=== PATIENT | female | born 1965 | race Two or more races ===

== ENCOUNTER → 2024-06-29 | Outpatient (CLI) | payer MEDICAID, SELFPAY ==
--- NOTE | 2024-06-29 11:15 | XR_ITS ---
Examination: Screening digital mammography, bilateral Computer aided detection 3-D breast Tomosynthesis, bilateral Date and time of exam: June 29, 2024 1109 hours Compared to mammograms dating to March 08, 2022 Indication: Screening Technique: Nonmagnified MLO, CC views of the breasts to been obtained, reconstructed from 3-D Tomosynthesis images. R2 computer aided detection program utilized for evaluation of suspicious masses and/or abnormal calcifications. 3-D Tomosynthesis images obtained. Findings: Scattered areas of fibroglandular density Again noted 7 mm nodule slightly inner left breast CC view posterior depth as well assess 7 mm nodule lower left breast MLO view 6 mm nodule upper left breast MLO view Impression: BI-RADS Category 0: Incomplete: Need additional imaging evaluation Recommend left breast sonography follow-up to further characterize nodules left breast
== END | disposition home or self-care (01) ==
LOC: CDIM 10:58
PROVIDERS: Referring Provider Nurse Practitioner Family; Visit Provider Nurse Practitioner Family
DX: Z12.31 Encounter for screening mammogram for malignant neoplasm of breast (principal); R92.8 Other abnormal and inconclusive findings on diagnostic imaging of breast
CPT/HCPCS: 77063; 77067

== ENCOUNTER → 2024-07-30 | Outpatient (CLI) | payer MEDICAID, SELFPAY ==
--- NOTE | 2024-07-30 09:17 | XR_ITS ---
Examination: Breast ultrasound, unilateral, left complete Date and time of exam: July 30, 2024 0933 hrs. Indications: Sharp left breast pain beginning 2 months ago, mammogram June 29, 2024 7 mm nodule inner left breast 7 mm nodule lower left breast 6 mm nodule upper left breast Technique: Real-time king scale ultrasonographic imaging performed left breast including all 4 quadrants as well as nipple retroareolar and axillary region. Findings: 1:00 cyst 5 x 5 mm 11:00 cyst 8 x 8 mm Retroareolar cyst 10 x 8 mm No solid nodules Impression: BI-RADS Category 2: Benign findings
== END | disposition home or self-care (01) ==
PROVIDERS: PCP Nurse Practitioner Family; Referring Provider Nurse Practitioner Family; Visit Provider Nurse Practitioner Family
DX: N60.02 Solitary cyst of left breast (principal)
CPT/HCPCS: 76641

== ENCOUNTER → 2024-10-15 | Outpatient (CLI) | payer MEDICAID, SELFPAY ==
--- NOTE | 2024-10-15 08:44 | XR_ITS ---
Examination: Foot, left 3 views TECHNIQUE: AP oblique lateral left foot 3 views Exam date and time: October 15, 2024 0848 hours INDICATIONS: Left foot paresthesias 10 years FINDINGS: Prominent osteopenia Mild to moderate narrowing first metatarsophalangeal joint Tiny plantar posterior bony calcaneal spurs. No fractures IMPRESSION: Mild to moderate osteoarthritis first metatarsophalangeal joint Tiny plantar posterior bony calcaneal spurs, each 2 to 3 mm,
== END | disposition home or self-care (01) ==
PROVIDERS: PCP Nurse Practitioner Family; Referring Provider Nurse Practitioner Family; Visit Provider Nurse Practitioner Family
DX: M19.072 Primary osteoarthritis, left ankle and foot (principal); M77.32 Calcaneal spur, left foot
CPT/HCPCS: 73630

== ENCOUNTER → 2025-01-20 | Outpatient (CLI) | payer MEDICAID, SELFPAY ==
--- NOTE | 2025-01-20 16:30 | XR_ITS ---
Examination: CT brain head without contrast. 2-D sagittal coronal reconstructions Date and time of exam:January 20, 2025 1608 hours INDICATIONS: Right-sided headaches beginning one year ago CTDI: vol (mGy):45.4 DLP: (mGycm):912 Technique: Multiple CT axial sections of the brain have been obtained, 5 mm slice thickness. Contrast has not been administered. 2-D sagittal, coronal reconstructions have been obtained Low dose protocols were performed. One or more of the following dose reduction techniques were used; automated exposure control, adjustment of the mA and/or KV according to patient size, use of iterative reconstruction technique. Findings: No significant ventricular enlargement. Intra-axial or extra-axial hemorrhage density is not seen. No mass effect or midline shift Basal cisterns are not remarkable. Fourth ventricle is midline. Cranial vault intact. Impression: Negative for acute hemorrhage, mass effect or midline shift. Advise clinical correlation and follow up accordingly
== END | disposition home or self-care (01) ==
PROVIDERS: PCP Nurse Practitioner Family; Referring Provider Nurse Practitioner Family; Visit Provider Nurse Practitioner Family
DX: R51.9 Headache, unspecified (principal)
CPT/HCPCS: 70450

== ENCOUNTER → 2025-03-23 | Outpatient (CLI) | payer MEDICAID, SELFPAY ==
--- NOTE | 2025-03-23 16:00 | XR_ITS ---
Examination: Breast ultrasound, unilateral, left complete Date and time of exam: March 23, 2025, 1559 hours INDICATIONS: Mammogram June 29, 2024 7 mm nodule inner left breast 7 mm nodule lower left breast 6 mm nodule upper left breast, left breast sonogram July 30, 2024 multiple breast cysts Technique: Real-time king scale ultrasonographic imaging performed left breast including all 4 quadrants as well as nipple retroareolar and axillary region. Findings: 4:00 cyst 7 x 7 mm 11:00 cyst 7 x 9 mm No solid nodules Multiple smaller cysts IMPRESSION: BI-RADS Category 2: Benign findings
== END | disposition home or self-care (01) ==
PROVIDERS: PCP Nurse Practitioner Family; Referring Provider Nurse Practitioner Family; Visit Provider Nurse Practitioner Family
DX: N63.20 Unspecified lump in the left breast, unspecified quadrant (principal)
CPT/HCPCS: 76641

== ENCOUNTER → 2025-04-15 | Outpatient (CLI) | payer BC, SELFPAY ==
--- NOTE | 2025-04-15 08:04 | XR_ITS ---
EXAMINATION: PA lateral chest 2 views TECHNIQUE: Upright PA lateral chest 2 views Date and time: April 15, 2025, 0828 hours, comparison December 30, 2023 INDICATIONS: Chest and back pain beginning 10 days ago. FINDINGS: Normal heart size Lungs are clear. The osseous structures are intact IMPRESSION: No active disease
== END | disposition home or self-care (01) ==
PROVIDERS: PCP Family Medicine; Referring Provider Nurse Practitioner Family; Visit Provider Nurse Practitioner Family
DX: R07.9 Chest pain, unspecified (principal); M54.9 Dorsalgia, unspecified
CPT/HCPCS: 71046